=== PATIENT | male | born 1960 | race Hispanic/Latino ===

== ENCOUNTER 2017-04-18 20:07 | Inpatient (IN) | payer BC ==
[2017-04-18] MEDS ORDERED: Piperacillin/Tazobact 3.375 GM in Sodium Chloride 0.9% 100 ML IVPB STA (20:44)
[2017-04-18] MEDS ORDERED: Sodium Chloride 0.9% 1,000 ML IV STA ×2 (20:45→22:21)
--- NOTE | 2017-04-18 21:03 | ED PDOC ---
HPI: Skin/Bite Injury Time Seen by Provider: 04/18/17 20:24 Chief Complaint (Nursing): Fever Chief Complaint (Provider): Swollen penis History Per: Patient History/Exam Limitations: no limitations Onset/Duration Of Symptoms: Days (x 1) Current Symptoms Are (Timing): Still Present Additional Complaint(s): 56-year-old male presents to the emergency department complaining that since 8AM this morning hes had increasing swelling, redness, and achy pain to the shaft of his penis, worsening over time. Symptoms were initially localized to where he injected Trimix into his penis around 3AM last night to treat erectile dysfunction. He did this in order to have relations with his partner. Patient is also complaining of a subjective fever, chills, decreased appetite, body aches, malaise, and fatigue. He is able to urinate. No hematuria or frequency. PMD: Dr. Mallory, [facility] Pt is deaf with bilateral hearing aids. 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 Full HPI and PMH is obtainable this way. Past Medical History Reviewed: Historical Data, Nursing Documentation, Vital Signs Vital Signs: Last Vital Signs Temp 98.4 F 04/18/17 23:55 Pulse 91 H 04/18/17 23:55 Resp 20 04/18/17 23:55 BP 106/71 04/18/17 23:55 Pulse Ox 96 04/18/17 23:55 - Medical History PMH: HIV Other PMH: erectile dysfunction - Family History Family History: States: Unknown Family Hx - Social History Current smoker - smoking cessation education provided: No Alcohol: Social Drugs: Denies - Home Medications Home Medications: Ambulatory Orders Medication Instructions Recorded Emtricitab/Rilpiviri/Tenof Ala 1 tab PO DAILY 04/18/17 [Odefsey Tablet] - Allergies Allergies/Adverse Reactions: Allergies Allergy/AdvReac Type Severity Reaction Status Date / Time No Known Allergies Allergy Verified 03/26/15 16:07 Review of Systems ROS Statement: Except As Marked, All Systems Reviewed And Found Negative (as per HPI, otherwise negative) Constitutional: Positive for: Fever, Chills, Malaise (and fatigue), Other (body aches) Gastrointestinal: Positive for: Other (decreased appetite) Genitourinary Male: Positive for: Penile Pain (w/ redness and swelling). Negative for: Frequency, Hematuria Physical Exam - Reviewed Nursing Documentation Reviewed: Yes Vital Signs Reviewed: Yes - Physical Exam Appears: Positive for: Non-toxic, In Acute Distress Head Exam: Positive for: ATRAUMATIC, NORMOCEPHALIC Skin: Positive for: Warm, Dry Eye Exam: Positive for: EOMI, PERRL ENT: Positive for: Pharynx Is (clear with dry mucus membranes) Neck: Positive for: Painless ROM, Supple Cardiovascular/Chest: Positive for: Chest Non Tender, Tachycardia Respiratory: Negative for: Accessory Muscle Use, Respiratory Distress Gastrointestinal/Abdominal: Positive for: Soft. Negative for: Tenderness, Mass , Distended, Guarding Male Genital Exam: Positive for: other (diffusely edematous and erythematous penile shaft with firm enlarged area to LEFT lateral shaft (pt reports location of injection), erythema extends down to anterior scrotal area). Negative for: scrotum tenderness (R), scrotum tenderness (L) Back: Positive for: Normal Inspection Extremity: Positive for: Normal ROM. Negative for: Deformity Neurologic/Psych: Positive for: Alert, Mood/Affect (anxious affect) - Laboratory Results Result Diagrams: 04/18/17 21:00 04/18/17 21:00 - ECG O2 Sat by Pulse Oximetry: 100 (RA) Pulse Ox Interpretation: Normal Medical Decision Making Medical Decision Making: Time: 20:40 Initial Impression: Wound infection, penile shaft Differential also includes abscess, cellulitis, Fourniers, and sepsis. Initial Plan: * CMP * CBC w/ differential * PTT * Prothromin time * VBG * Blood type and screen * Blood culture * Sodium chloride IV 1000 ml at 1000 mls/hr * Toradol 15 mg IVP * Tylenol 975 mg PO * IV Zosyn and Vancomycin started * Will page PMD and urology Discussed case with Darren Barros NP for [facility]. Discussed case with Dr. Banks, patients private urologist in [place]. Patient will be hospitalized for IV antibiotics due to rapid progression of infection, as well as sensitive location of infection. Discussed with Dr. Scott, urology on-call, who agrees with plan and will see patient in the morning. Scribe Attestation: Documented by Jonna Becerra, acting as a scribe for Rossana Persaud MD Provider Scribe Attestation: All medical record entries made by the Scribe were at my direction and personally dictated by me. I have reviewed the chart and agree that the record accurately reflects my personal performance of the history, physical exam, medical decision making, and the department course for this patient. I have also personally directed, reviewed, and agree with the discharge instructions and disposition. Disposition - Clinical Impression Clinical Impression: Abscess of corpus cavernosum and penis, Cellulitis of corpus cavernosum and penis, Sepsis - Patient ED Disposition Is Patient to be Admitted: Yes Counseled Patient/Family Regarding: Studies Performed, Diagnosis - Disposition Disposition Time: 21:00 Condition: FAIR - Pt Status Changed To: Hospital Disposition Of: Observation - POA Present On Arrival: None
[2017-04-18] MEDS ORDERED: Piperacillin/Tazobact 3.375 gm Inj IVPB ONE (21:07)
[2017-04-18 21:09] LABS: VENOUS BLOOD GAS BASE EXCESS 5.2 mmol/L (0.0-2.0); VENOUS BLOOD GAS PCO2 32 mmHg (40-60); VENOUS BLOOD GAS PO2 46 mm/Hg (30-55); VENOUS BLOOD PH 7.54 (7.32-7.43)
[2017-04-18 21:24] LABS: PARTIAL THROMBOPLASTIN TIME 30.4 Seconds (25.6-37.1); PROTHROMBIN TIME 14.3 Seconds (9.8-13.1)
[2017-04-18 21:32] LABS: BASO % 0.1 % (0.0-2.0); EOS % 0.1 % (0.0-4.0); HEMOGLOBIN 13.2 g/dL (12.0-18.0); LYMPH # 1.5 K/uL (1.0-4.3); LYMPH % 4.9 % (20.0-40.0); MEAN CELL VOLUME 88.3 fl (80.0-94.0); MEAN CORPUSCULAR HEMOGLOBIN 29.5 pg (27.0-31.0); MEAN CORPUSCULAR HGB CONC 33.4 g/dL (33.0-37.0); MEAN PLATELET VOLUME 8.6 fl (7.2-11.7); MONO # 2.7 K/uL (0.0-0.8); MONO % 8.9 % (0.0-10.0); NEUT # 26.6 K/uL (1.8-7.0); PLATELET COUNT 271 K/uL (130-400); RBC 4.48 Mil/uL (4.40-5.90)
[2017-04-18] MEDS ORDERED: Vancomycin 1 g Inj ONE (21:37)
[2017-04-18 21:41] LABS: WHITE BLOOD COUNT 30.9 K/uL (4.8-10.8)
[2017-04-18] MEDS ORDERED: Piperacillin/Tazobact 3.375 GM in Sodium Chloride 0.9% 100 ML IVPB SCH (22:00)
[2017-04-18 22:17] LABS: BLOOD UREA NITROGEN 13 mg/dl (9-20)
[2017-04-18] MEDS: Sodium Chloride 0.9% 1,000 ML IV SCH (22:17)
[2017-04-18 22:18] LABS: ALB/GLOB RATIO 1.1 (1.0-2.1); ALBUMIN 4.1 g/dL (3.5-5.0); ALT/SGPT 59 U/L (21-72); AST/SGOT 58 U/L (17-59); CALCIUM 9.4 mg/dL (8.4-10.2); GFR AFRICAN-AMERICAN > 60; GFR NON-AFRICAN AMERICAN > 60
[2017-04-18 22:35] LABS: GIANT PLATELETS PRESENT; LYMPHOCYTE 7 % (20-50); MONOCYTE 11 % (0-10); NEUTROPHIL 83 % (42-75); PLATELET ESTIMATE NORMAL (NORMAL); TOTAL CELLS COUNTED 100; TOXIC GRANULATION PRESENT
[2017-04-19] MEDS: Piperacillin/Tazobact 3.375 GM in Sodium Chloride 0.9% 100 ML IVPB SCH ×4 (03:27→21:52)
[2017-04-19 06:42] LABS: BASO % 0.2 % (0.0-2.0); HEMOGLOBIN 12.6 g/dL (12.0-18.0); LYMPH # 1.7 K/uL (1.0-4.3); LYMPH % 7.1 % (20.0-40.0); MEAN CELL VOLUME 89.2 fl (80.0-94.0); MEAN CORPUSCULAR HEMOGLOBIN 30.1 pg (27.0-31.0); MEAN CORPUSCULAR HGB CONC 33.7 g/dL (33.0-37.0); MEAN PLATELET VOLUME 8.7 fl (7.2-11.7); MONO # 2.2 K/uL (0.0-0.8); MONO % 9.1 % (0.0-10.0); NEUT # 20.3 K/uL (1.8-7.0); NEUT % 83.6 % (50.0-75.0); NRBC % 0.1 % (0.0-0.0); RBC 4.17 Mil/uL (4.40-5.90); RED CELL DISTRIBUTION WIDTH 13.9 % (11.5-14.5); WHITE BLOOD COUNT 24.3 K/uL (4.8-10.8)
[2017-04-19 06:59] LABS: ALBUMIN 3.4 g/dL (3.5-5.0); ALT/SGPT 51 U/L (21-72); AST/SGOT 43 U/L (17-59); BLOOD UREA NITROGEN 12 mg/dl (9-20); CALCIUM 8.3 mg/dL (8.4-10.2); GFR AFRICAN-AMERICAN > 60; GFR NON-AFRICAN AMERICAN > 60
[2017-04-19] MEDS ORDERED: [UNRECOGNIZED DRUG - OTHER] PO SCH (09:00)
--- NOTE | 2017-04-19 10:12 | CARD ---
APPROVED REPORT EKG Measurement Heart [id number] <Conclusion> Sinus tachycardia Possible Left atrial enlargement Borderline ECG
[2017-04-19] MEDS: Sodium Chloride 0.9% 1,000 ML IV SCH ×3 (10:20→17:00)
--- NOTE | 2017-04-19 11:16 | RAD ---
HISTORY: sepsis COMPARISON: None available. TECHNIQUE: Chest, one view. FINDINGS: Examination limited by habitus and hypoinflation. Left lateral chest wall incompletely imaged. LUNGS: Prominent vascular markings may be exaggerated due to hypoinflation rather than pulmonary venous congestion. Correlate clinically. Please note that chest x-ray has limited sensitivity for the detection of pulmonary masses. PLEURA: No significant pleural effusion identified. No definite pneumothorax . CARDIOVASCULAR: Borderline cardiomegaly. OSSEOUS STRUCTURES: Degenerative changes. VISUALIZED UPPER ABDOMEN: Unremarkable. OTHER FINDINGS: None. IMPRESSION: Limited study. Prominent vascular markings may be exaggerated due to hypoinflation rather than pulmonary venous congestion. Correlate clinically. Borderline cardiomegaly.
--- NOTE | 2017-04-19 12:04 | CP.PCM.HP ---
History of Present Illness - History of Present Illness History of Present Illness: pt admitted for corpus cavernosum abscess/penile swelling after using trileptix for priapism. pt has had same in past but not this severe. h/o hiv pos satus lopez snot know [id number] load. denies f/c, n/v/d. per rn urinating well, pain controlled penis/testes red/swollen Present on Admission - Present on Admission Any Indicators Present on Admission: No Review of Systems - Genitourinary Genitourinary: As Per HPI Past Patient History - Infectious Disease Hx of Infectious Diseases: None - Past Medical History & Family History Past Medical History?: Yes - Past Social History Alcohol: Social Drugs: Denies - CARDIAC Hx Cardiac Disorders: No - PULMONARY Hx Respiratory Disorders: No - NEUROLOGICAL Hx Neurological Disorder: Yes Other/Comment: pt is deaf. pt able to read lips and sign - HEENT Hx HEENT Problems: Yes Hx Deafness: Yes (pt is deaf. pt able to read lips and sign) - RENAL Hx Chronic Kidney Disease: No - ENDOCRINE/METABOLIC Hx Endocrine Disorders: No - HEMATOLOGICAL/ONCOLOGICAL Hx Human Immunodeficiency Virus (HIV): Yes - INTEGUMENTARY Hx Dermatological Problems: No - MUSCULOSKELETAL/RHEUMATOLOGICAL Hx Musculoskeletal Disorders: No Hx Falls: No - GASTROINTESTINAL Hx Gastrointestinal Disorders: No - GENITOURINARY/GYNECOLOGICAL Hx Genitourinary Disorders: Yes Hx Prostate Problems: Yes Hx Reproductive Disorders: Yes (Erectile dysfunction) - PSYCHIATRIC Hx Psychophysiologic Disorder: No Hx Substance Use: No - SURGICAL HISTORY Hx Surgeries: Yes Hx Appendectomy: Yes Hx Herniorrhaphy: Yes - ANESTHESIA Hx Anesthesia: Yes Hx Anesthesia Reactions: No Meds Allergies/Adverse Reactions: Allergies Allergy/AdvReac Type Severity Reaction Status Date / Time No Known Allergies Allergy Verified 03/26/15 16:07 Physical Exam - Constitutional Appears: Well, Non-toxic, No Acute Distress - Head Exam Head Exam: ATRAUMATIC, NORMAL INSPECTION, NORMOCEPHALIC - Eye Exam Eye Exam: EOMI, Normal appearance, PERRL Pupil Exam: NORMAL ACCOMODATION, PERRL - ENT Exam ENT Exam: Mucous Membranes Moist, Normal Exam - Neck Exam Neck exam: Positive for: Normal Inspection - Respiratory Exam Respiratory Exam: Clear to Auscultation Bilateral, NORMAL BREATHING PATTERN - Cardiovascular Exam Cardiovascular Exam: REGULAR RHYTHM, +S1, +S2 - GI/Abdominal Exam GI & Abdominal Exam: Normal Bowel Sounds, Soft. absent: Tenderness - Exam Exam: Scrotal Swelling External exam: Erythema - Extremities Exam Extremities exam: Positive for: full ROM, normal capillary refill, normal inspection, pedal pulses present - Back Exam Back exam: NORMAL INSPECTION - Neurological Exam Neurological exam: Alert, CN II-XII Intact, Normal Gait, Oriented x3, Reflexes Normal - Psychiatric Exam Psychiatric exam: Normal Affect, Normal Mood - Skin Skin Exam: Dry, Intact, Normal Color, Warm Results - Vital Signs Recent Vital Signs: Last Vital Signs Temp 98.7 F 04/19/17 08:18 Pulse 89 04/19/17 08:18 Resp 20 04/19/17 08:18 BP 100/64 04/19/17 08:18 Pulse Ox 96 04/19/17 08:18 - Labs Result Diagrams: 04/19/17 06:30 04/19/17 06:30 Labs: Laboratory Results - last 24 hr 04/18/17 04/18/17 04/18/17 20:46 21:00 21:00 WBC 30.9 H D RBC 4.48 Hgb 13.2 Hct 39.5 MCV 88.3 D MCH 29.5 MCHC 33.4 RDW 14.0 Plt Count 271 MPV 8.6 Neut % (Auto) 86.0 H Lymph % (Auto) 4.9 L [place] % (Auto) 8.9 Eos % (Auto) 0.1 Baso % (Auto) 0.1 Neut # 26.6 H Lymph # 1.5 [place] # 2.7 H Eos # 0.0 Baso # 0.0 Neutrophils % (Manual) 83 H Lymphocytes % (Manual) 7 L Monocytes % (Manual) 11 H Toxic Granulation Present Platelet Estimate Normal Giant Platelets Present RBC Morphology Normal PT 14.3 H INR 1.0 APTT 30.4 pO2 VBG pH VBG pCO2 VBG HCO3 VBG Total CO2 VBG O2 Sat (Calc) VBG Base Excess VBG Potassium Glucose Lactate FiO2 Sodium 127 L Potassium 3.7 Chloride 92 L Carbon Dioxide 25 Anion Gap 14 BUN 13 Creatinine 1.0 Est GFR ( Amer) > 60 Est GFR (Non-Af Amer) > 60 Random Glucose 152 H Calcium 9.4 Total Bilirubin 2.0 H AST 58 ALT 59 Alkaline Phosphatase 70 Total Protein 7.8 Albumin 4.1 Globulin 3.7 Albumin/Globulin Ratio 1.1 Venous Blood Potassium Blood Type Blood Type Confirm Antibody Screen BBK History Checked 04/18/17 04/18/17 04/18/17 21:00 21:00 21:04 WBC RBC Hgb Hct MCV MCH MCHC RDW Plt Count MPV Neut % (Auto) Lymph % (Auto) [place] % (Auto) Eos % (Auto) Baso % (Auto) Neut # Lymph # [place] # Eos # Baso # Neutrophils % (Manual) Lymphocytes % (Manual) Monocytes % (Manual) Toxic Granulation Platelet Estimate Giant Platelets RBC Morphology PT INR APTT pO2 46 VBG pH 7.54 H VBG pCO2 32 L VBG HCO3 28.7 VBG Total CO2 28.4 H VBG O2 Sat (Calc) 90.3 H VBG Base Excess 5.2 H VBG Potassium 3.7 Glucose 157 H Lactate 0.9 FiO2 21.0 Sodium 127.0 L Potassium Chloride 94.0 L Carbon Dioxide Anion Gap BUN Creatinine Est GFR ( Amer) Est GFR (Non-Af Amer) Random Glucose Calcium Total Bilirubin AST ALT Alkaline Phosphatase Total Protein Albumin Globulin Albumin/Globulin Ratio Venous Blood Potassium 3.7 Blood Type O NEGATIVE Blood Type Confirm O NEGATIVE Antibody Screen Negative BBK History Checked No verified bt 04/19/17 04/19/17 06:30 06:30 WBC 24.3 H RBC 4.17 L Hgb 12.6 Hct 37.2 MCV 89.2 MCH 30.1 MCHC 33.7 RDW 13.9 Plt Count 250 MPV 8.7 Neut % (Auto) 83.6 H Lymph % (Auto) 7.1 L [place] % (Auto) 9.1 Eos % (Auto) 0.0 Baso % (Auto) 0.2 Neut # 20.3 H Lymph # 1.7 [place] # 2.2 H Eos # 0.0 Baso # 0.0 Neutrophils % (Manual) Lymphocytes % (Manual) Monocytes % (Manual) Toxic Granulation Platelet Estimate Giant Platelets RBC Morphology PT INR APTT pO2 VBG pH VBG pCO2 VBG HCO3 VBG Total CO2 VBG O2 Sat (Calc) VBG Base Excess VBG Potassium Glucose Lactate FiO2 Sodium 140 Potassium 3.8 Chloride 103 Carbon Dioxide 29 Anion Gap 12 BUN 12 Creatinine 1.0 Est GFR ( Amer) > 60 Est GFR (Non-Af Amer) > 60 Random Glucose 112 H Calcium 8.3 L Total Bilirubin 2.1 H AST 43 ALT 51 Alkaline Phosphatase 58 Total Protein 6.8 Albumin 3.4 L Globulin 3.5 Albumin/Globulin Ratio 1.0 Venous Blood Potassium Blood Type Blood Type Confirm Antibody Screen BBK History Checked Assessment & Plan (1) DVT prophylaxis Assessment and Plan: scd and ae hose hold anticoag until uro eval for pssible draining of penis ambulatiojn Status: Acute (2) Abscess of corpus cavernosum and penis Assessment and Plan: zosyn/vanco urology pain control Status: Acute (3) Cellulitis of corpus cavernosum and penis Assessment and Plan: zosyn/vanco urology pain control Status: Acute - Assessment and Plan (Free Text) Assessment: hiv-cont home meds, unkn cd4/viral load. no aids defining illness noted/reported Decision To Admit - Pt Status Changed To: Hospital Disposition Of: Inpatient - Admit Certification Admit to Inpatient:: After my assessment, the patient will require hospitalization for at least two midnights. This is because of the severity of symptoms shown, intensity of services needed, and/or the medical risk in this patient being treated as an outpatient. - . Bed Request Type: Med/Surg Admitting Physician: Nilda Galdamez
[2017-04-19] MEDS ORDERED: Chlorhexidine Gluconate 2OZ GEL TP ONE (13:30)
--- NOTE | 2017-04-19 22:26 | CON ---
DATE: 04/19/2017 COMPREHENSIVE UROLOGIC CONSULTATION REASON FOR CONSULTATION: Penile and scrotal cellulitis post Trimix injection into the penis. BRIEF HISTORY: Patient is a 56-year-old deaf, HIV+ sexually active white male who recently gave himself his second self intracorporeal penile injection for treatment of ED in the early a.m. today and noticed penile swelling at the injection site, which started getting progressively worse eventually requiring the patient to come to the emergency room. Patient had a prior episode of priapism in 2014 but this was not priapism this time. In the emergency room, it was determined that the patient most likely had some sort of penile and scrotal cellulitis with penile edema with an elevated white count and was admitted for IV antibiotics which currently includes Zosyn and vancomycin. The patient has done relatively well on these antibiotics with decreased swelling and pain which also included applying ice to the wound and now Bactroban ointment to the penile injection site. This was his second time using Trimix recently and patient states he will no longer use this technique again. Patient is followed by a urologist in [facility] and most of his medical doctors are also in [facility]. PAST MEDICAL HISTORY: His only other medical problem is HIV. MEDICATIONS: He is currently on Odefsey for treatment of HIV as his only medication. PAST SURGICAL HISTORY: Includes hernia repair and appendectomy. ALLERGIES: HE HAS NO KNOWN ALLERGIES TO ANY MEDICATIONS. SOCIAL HISTORY: He is a very rare social drinker and no history of any tobacco use. PHYSICAL EXAMINATION: GENERAL: Today, he is a well-developed, well-nourished white male, deaf, but is able to communicate by reading lips and he does speak. HEENT: Examination is grossly within normal limits. NECK: Supple. Thyroid not palpable. ABDOMEN: Soft, nondistended, nontender. No CVA tenderness. No suprapubic tenderness. GENITALIA: Patient is non-circumcised with a swollen foreskin and also some edema seen at the injection site on the patient's left mid penile shaft towards the base of the penis. The scrotum is also slightly erythematous. Normal penile meatus. RECTAL: Examination showed normal rectal tone without fluctuance or masses. Prostate was average sized, smooth, symmetrical, and nontender without nodules or indurations with a palpable median sulcus. Patient has full range of motion in both upper and lower extremities. LABORATORY DATA: His laboratory evaluation on 04/18/2017 showed a WBC count of 30.9, which decreased to 24.3 on IV Zosyn and vancomycin about 8 hours later. His current labs showed CBC with a WBC count of 24.3, hemoglobin of 12.6, hematocrit 37.2, and a platelet count of 250,000. On 04/18/2017, PT was 14.3, INR was 1.0, and PTT was 30.4. His chem profile today, 04/19/2017 shows a sodium of 140, potassium 3.8, chloride 103, CO2 of 29, BUN and creatinine of 12 and 1.0 respectively with a GFR of greater than 60. Random glucose is 112. Calcium is 8.3. Total bilirubin was 2.1, which is elevated. AST was 43, ALT 51, and alk phosphatase was 58. Chest x-ray showed prominent vascular markings, which may be exaggerated due to hypoinflation rather than pulmonary venous congestion. Borderline cardiomegaly. Patient is voiding gagan urine well without complaints, but urinalysis so far was not on the chart yet. DIAGNOSTIC IMPRESSION: Scrotal and penile cellulitis with mostly penile edema. PLAN: To continue the patient on his current IV antibiotic regimen and topical Bactroban ointment regimen and maintain the penis and scrotum raised above 2 rolled sheets. When the swelling goes down and his white count goes back to normal, patient can be discharged home on oral antibiotics, which may include something like Augmentin 875 mg b.i.d. for at least 10 days. Patient can be seen in office followup in 2 weeks. Ernesto Scott MD MTDD
[2017-04-20] MEDS: Piperacillin/Tazobact 3.375 GM in Sodium Chloride 0.9% 100 ML IVPB SCH ×4 (03:14→20:43)
[2017-04-20 06:22] LABS: BASO # 0.1 K/uL (0.0-0.2); BASO % 0.4 % (0.0-2.0); EOS # 0.1 K/uL (0.0-0.7); EOS % 0.5 % (0.0-4.0); HEMOGLOBIN 12.1 g/dL (12.0-18.0); LYMPH # 2.2 K/uL (1.0-4.3); LYMPH % 13.6 % (20.0-40.0); MEAN CELL VOLUME 89.9 fl (80.0-94.0); MEAN CORPUSCULAR HEMOGLOBIN 30.2 pg (27.0-31.0); MEAN CORPUSCULAR HGB CONC 33.5 g/dL (33.0-37.0); MEAN PLATELET VOLUME 8.4 fl (7.2-11.7); MONO # 1.3 K/uL (0.0-0.8); NEUT # 12.4 K/uL (1.8-7.0); NEUT % 77.5 % (50.0-75.0); NRBC % 0.1 % (0.0-0.0); RBC 4.02 Mil/uL (4.40-5.90); RED CELL DISTRIBUTION WIDTH 14.4 % (11.5-14.5); WHITE BLOOD COUNT 15.9 K/uL (4.8-10.8)
[2017-04-20 06:44] LABS: ALBUMIN 3.5 g/dL (3.5-5.0); ALT/SGPT 50 U/L (21-72); AST/SGOT 29 U/L (17-59); BLOOD UREA NITROGEN 12 mg/dl (9-20); CALCIUM 8.6 mg/dL (8.4-10.2); GFR AFRICAN-AMERICAN > 60; GFR NON-AFRICAN AMERICAN > 60
--- NOTE | 2017-04-20 07:26 | CP.PCM.PN ---
Subjective - Date & Time of Evaluation Date of Evaluation: 04/20/17 Time of Evaluation: 07:26 - Subjective Subjective: pt comfortable in bed. no f/c, n/v/d. still w/ penile swelling/erythema. pt able to urinate, pain controlled Objective - Vital Signs/Intake and Output Vital Signs (last 24 hours): Temp Pulse Resp BP Pulse Ox 98.2 F 81 18 101/66 98 04/20/17 00:30 04/20/17 00:30 04/20/17 00:30 04/20/17 00:30 04/20/17 00:30 - Medications Medications: Current Medications Acetaminophen (Tylenol 325mg Tab) 650 mg PO Q4 PRN PRN Reason: Fever >100.4 F Acetaminophen (Tylenol 325mg Tab) 650 mg PO Q4 PRN PRN Reason: Headache Last Admin: 04/19/17 15:31 Dose: 650 mg Home Med (Emtricitab/Rilpiviri/Tenof Ala [Odefsey Tablet]) 1 tab PO DAILY [facility] Vancomycin HCl 1 gm/ Sodium (Chloride) 250 mls @ 166.667 mls/hr IVPB Q12@1000, 2200 ISA PRN Reason: Protocol Last Admin: 04/19/17 21:54 Dose: 166.667 mls/hr Piperacillin Sod/Tazobactam (Sod 3.375 gm/ Sodium Chloride) 100 mls @ 100 mls/ hr IVPB 0300,0900,1500,2100 ISA PRN Reason: Protocol Last Admin: 04/20/17 03:14 Dose: 100 mls/hr Ketorolac Tromethamine (Toradol) 30 mg IVP Q6 PRN PRN Reason: pain 6-10 Lactobacillus Acidophilus (Bacid Acidophilus) 1 cap PO BID [facility] Mupirocin (Bactroban Ointment) 1 applic TOP BID [facility] Last Admin: 04/19/17 16:59 Dose: 1 applic - Labs Labs: 04/20/17 06:05 04/20/17 06:05 PT 14.3 Seconds (9.8-13.1) H 04/18/17 20:46 INR 1.0 (0.9-1.2) 04/18/17 20:46 APTT 30.4 Seconds (25.6-37.1) 12/31/17 20:46 - Constitutional Appears: Well, Non-toxic, No Acute Distress - Head Exam Head Exam: ATRAUMATIC, NORMAL INSPECTION, NORMOCEPHALIC - Eye Exam Eye Exam: EOMI, Normal appearance, PERRL Pupil Exam: NORMAL ACCOMODATION, PERRL - ENT Exam ENT Exam: Mucous Membranes Moist, Normal Exam - Neck Exam Neck Exam: Full ROM, Normal Inspection. absent: Lymphadenopathy - Respiratory Exam Respiratory Exam: Clear to Ausculation Bilateral, NORMAL BREATHING PATTERN - Cardiovascular Exam Cardiovascular Exam: REGULAR RHYTHM, RRR, +S1, +S2. absent: Murmur - GI/Abdominal Exam GI & Abdominal Exam: Soft, Normal Bowel Sounds. absent: Tenderness - Extremities Exam Extremities Exam: Full ROM, Normal Capillary Refill, Normal Inspection. absent : Joint Swelling, Pedal Edema - Back Exam Back Exam: NORMAL INSPECTION - Neurological Exam Neurological Exam: Alert, Awake, CN II-XII Intact, Normal Gait, Oriented x3 - Psychiatric Exam Psychiatric exam: Normal Affect, Normal Mood - Skin Skin Exam: Dry, Intact, Normal Color, Warm Assessment and Plan (1) DVT prophylaxis Assessment & Plan: scd abd ae hose ambulation Status: Acute (2) Abscess of corpus cavernosum and penis Assessment & Plan: cont anbx uro consult appriciated pain management elevate penis/scrotum wbc count trending down Status: Acute (3) Cellulitis of corpus cavernosum and penis Assessment & Plan: cont anbx uro consult appriciated pain management elevate penis/scrotum Status: Acute
[2017-04-20] MEDS: Lactobacillus Acidophilus 500 MU Cap PO SCH ×2 (08:53→17:00)
[2017-04-21] MEDS: Piperacillin/Tazobact 3.375 GM in Sodium Chloride 0.9% 100 ML IVPB SCH ×2 (02:22→09:11)
[2017-04-21 07:06] LABS: BASO # 0.1 K/uL (0.0-0.2); BASO % 0.7 % (0.0-2.0); EOS # 0.2 K/uL (0.0-0.7); EOS % 1.9 % (0.0-4.0); LYMPH # 2.1 K/uL (1.0-4.3); LYMPH % 21.9 % (20.0-40.0); MEAN CELL VOLUME 90.1 fl (80.0-94.0); MEAN CORPUSCULAR HEMOGLOBIN 30.6 pg (27.0-31.0); MEAN CORPUSCULAR HGB CONC 33.9 g/dL (33.0-37.0); MEAN PLATELET VOLUME 8.7 fl (7.2-11.7); MONO # 0.8 K/uL (0.0-0.8); MONO % 8.3 % (0.0-10.0); NEUT # 6.5 K/uL (1.8-7.0); NEUT % 67.2 % (50.0-75.0); NRBC % 0.1 % (0.0-0.0); RBC 4.25 Mil/uL (4.40-5.90); RED CELL DISTRIBUTION WIDTH 13.9 % (11.5-14.5); WHITE BLOOD COUNT 9.7 K/uL (4.8-10.8)
[2017-04-21 07:18] LABS: ALBUMIN 3.8 g/dL (3.5-5.0); ALT/SGPT 48 U/L (21-72); AST/SGOT 29 U/L (17-59); BLOOD UREA NITROGEN 9 mg/dl (9-20); GFR AFRICAN-AMERICAN > 60; GFR NON-AFRICAN AMERICAN > 60
--- NOTE | 2017-04-21 08:26 | CP.PCM.DIS ---
Provider - Provider Date of Admission: 04/19/17 12:00 Attending physician: Nilda Galdamez MD Time Spent in preparation of Discharge (in minutes): 15 Diagnosis - Discharge Diagnosis (1) DVT prophylaxis Status: Acute (2) Abscess of corpus cavernosum and penis Status: Acute (3) Cellulitis of corpus cavernosum and penis Status: Acute Hospital Course - Lab Results Lab Results: Micro Results 04/18/17 23:47 Blood-Venous Blood Culture - Preliminary NO GROWTH AFTER 48 HOURS 04/18/17 21:00 Blood-Venous Blood Culture - Preliminary NO GROWTH AFTER 48 HOURS Most Recent Lab Values WBC 9.7 K/uL (4.8-10.8) 04/21/17 06:35 RBC 4.25 Mil/uL (4.40-5.90) L 04/21/17 06:35 Hgb 13.0 g/dL (12.0-18.0) 04/21/17 06:35 Hct 38.3 % (35.0-51.0) 04/21/17 06:35 MCV 90.1 fl (80.0-94.0) 04/21/17 06:35 MCH 30.6 pg (27.0-31.0) 04/21/17 06:35 MCHC 33.9 g/dL (33.0-37.0) 04/21/17 06:35 RDW 13.9 % (11.5-14.5) 04/21/17 06:35 Plt Count 280 K/uL (130-400) 04/21/17 06:35 MPV 8.7 fl (7.2-11.7) 04/21/17 06:35 Neut % (Auto) 67.2 % (50.0-75.0) 04/21/17 06:35 Lymph % (Auto) 21.9 % (20.0-40.0) 04/21/17 06:35 [place] % (Auto) 8.3 % (0.0-10.0) 04/21/17 06:35 Eos % (Auto) 1.9 % (0.0-4.0) 04/21/17 06:35 Baso % (Auto) 0.7 % (0.0-2.0) 04/21/17 06:35 Neut # 6.5 K/uL (1.8-7.0) 04/21/17 06:35 Lymph # 2.1 K/uL (1.0-4.3) 04/21/17 06:35 [place] # 0.8 K/uL (0.0-0.8) 04/21/17 06:35 Eos # 0.2 K/uL (0.0-0.7) 04/21/17 06:35 Baso # 0.1 K/uL (0.0-0.2) 04/21/17 06:35 Neutrophils % (Manual) 83 % (42-75) H 04/18/17 21:00 Lymphocytes % (Manual) 7 % (20-50) L 04/18/17 21:00 Monocytes % (Manual) 11 % (0-10) H 04/18/17 21:00 Toxic Granulation Present 04/18/17 21:00 Platelet Estimate Normal (NORMAL) 04/18/17 21:00 Giant Platelets Present 04/18/17 21:00 RBC Morphology Normal (NORMAL) 04/18/17 21:00 PT 14.3 Seconds (9.8-13.1) H 04/18/17 20:46 INR 1.0 (0.9-1.2) 04/18/17 20:46 APTT 30.4 Seconds (25.6-37.1) 04/18/17 20:46 pO2 46 mm/Hg (30-55) 04/18/17 21:04 VBG pH 7.54 (7.32-7.43) H 04/18/17 21:04 VBG pCO2 32 mmHg (40-60) L 04/18/17 21:04 VBG HCO3 28.7 mmol/L 04/18/17 21:04 VBG Total CO2 28.4 mmol/L (22-28) H 04/18/17 21:04 VBG O2 Sat (Calc) 90.3 % (40-65) H 04/18/17 21:04 VBG Base Excess 5.2 mmol/L (0.0-2.0) H 04/18/17 21:04 VBG Potassium 3.7 mmol/L (3.6-5.2) 04/18/17 21:04 Sodium 127.0 mmol/L (132-148) L 04/18/17 21:04 Chloride 94.0 mmol/L (98-107) L 04/18/17 21:04 Glucose 157 mg/dL (75-110) H 04/18/17 21:04 Lactate 0.9 mmol/L (0.7-2.1) 04/18/17 21:04 FiO2 21.0 % 04/18/17 21:04 Sodium 142 mmol/l (132-148) 04/21/17 06:35 Potassium 3.8 MMOL/L (3.6-5.0) 04/21/17 06:35 Chloride 105 mmol/L (98-107) 04/21/17 06:35 Carbon Dioxide 27 mmol/L (22-30) 04/21/17 06:35 Anion Gap 14 (10-20) 04/21/17 06:35 BUN 9 mg/dl (9-20) 04/21/17 06:35 Creatinine 1.0 mg/dl (0.8-1.5) 04/21/17 06:35 Est GFR ( Amer) > 60 04/21/17 06:35 Est GFR (Non-Af Amer) > 60 04/21/17 06:35 Random Glucose 94 mg/dL (75-110) 04/21/17 06:35 Calcium 9.0 mg/dL (8.4-10.2) 04/21/17 06:35 Total Bilirubin 0.5 mg/dl (0.2-1.3) 04/21/17 06:35 AST 29 U/L (17-59) 04/21/17 06:35 ALT 48 U/L (21-72) 04/21/17 06:35 Alkaline Phosphatase 64 U/L (38-126) 04/21/17 06:35 Total Protein 7.4 G/DL (6.3-8.2) 04/21/17 06:35 Albumin 3.8 g/dL (3.5-5.0) 04/21/17 06:35 Globulin 3.6 gm/dL (2.2-3.9) 04/21/17 06:35 Albumin/Globulin Ratio 1.0 (1.0-2.1) 04/21/17 06:35 Venous Blood Potassium 3.7 mmol/L (3.6-5.2) 04/18/17 21:04 Blood Type O NEGATIVE 04/18/17 21:00 Blood Type Confirm O NEGATIVE 04/18/17 21:00 Antibody Screen Negative 04/18/17 21:00 BBK History Checked No verified bt 04/18/17 21:00 Discharge Exam - Head Exam Head Exam: ATRAUMATIC, NORMAL INSPECTION, NORMOCEPHALIC - Eye Exam Eye Exam: EOMI, Normal appearance, PERRL Pupil Exam: NORMAL ACCOMODATION, PERRL - Respiratory Exam Respiratory Exam: Clear to PA & Lateral, NORMAL BREATHING PATTERN, UNREMARKABLE - Cardiovascular Exam Cardiovascular Exam: REGULAR RHYTHM, RRR, +S1, +S2 - GI/Abdominal Exam GI & Abdominal Exam: Normal Bowel Sounds, Soft, Unremarkable - Extremities Exam Extremities exam: full ROM, normal capillary refill, normal inspection, pedal pulses present - Neurological Exam Neurological exam: Alert, CN II-XII Intact, Normal Gait, Oriented x3, Reflexes Normal - Psychiatric Exam Psychiatric exam: Normal Affect, Normal Mood - Skin Skin Exam: Dry, Intact, Normal Color, Warm Discharge Plan - Discharge Medications Prescriptions: Amoxicillin/Clavulanate [Augmentin 875 MG-125 MG] 1 tab PO BID #20 tab - Follow Up Plan Condition: FAIR Disposition: HOME/ ROUTINE Instructions: Cellulitis (DC), Abscess (GEN) Additional Instructions: final dx-corpus cavernosum abscess/cellulitis cleared by uro, f/u primary uro in [facility]. keep penis/scrotum elevated until swelling gone. meds e-rx no f/c, n/v/d. passing urine. no pain Referrals: Ernesto Scott MD [Staff Provider] - Nilda Galdamez MD [Staff Provider] -
[2017-04-21 08:27] VITALS: BP 122/78; PULSE 75; RESP 20; TEMP 98.1; O2SAT 100
[2017-04-21] MEDS: Lactobacillus Acidophilus 500 MU Cap PO SCH (09:13)
--- NOTE | 2017-04-23 08:16 | PQF SEPSIS ---
Sepsis is documented in the ED Physician Documentation Report. After study was diagnosis of sepsis ruled in or out? This form is a permanent part of the medical record Clarification of your documentation is requested to better reflect the severity of illness and intensity of treatment of your patient. Indicators present [] Temp < 96.8 or > 100.4 [x] WBC count > 12,000/mm3 or <000/mm3 or 10% immature neutrophils [] Heart Rate > 90 [] Respiratory Rate > 20 [x] Fever or hypothermia [x] Chills [] Positive blood cultures [] Hypotension [] Metabolic acidosis (Elevated lactate level, anion gap or reduced blood pH) [] Acute confusion /Altered Mental Status [] Shock [] Other: [] Location in the medical record that reflects the above clinical findings: [] Treatment Provided: [] PHYSICIAN'S RESPONSE Based on your medical judgment of the clinical indicators outlined above, are you treating this patient for a known or suspected: [] Sepsis / Septicemia Please specify organism if known [] [x] SIRS (Systemic Inflammatory Response Syndrome) [] Severe Sepsis (Sepsis with Associated Organ Dysfunction) [] Fever of Unknown Origin [] Other, please indicate: [] [] If Unable to Determine, please check the box, sign and date. Present On Admission (POA) Indicator: [x] Present at the time of admission [] Not present at the time of admission [] Clinically Undetermined In responding to this query, please exercise your independent professional judgment. The fact that a question is asked does not imply that any particular answer is desired or expected. Thank you for your clarification on this documentation. If you have any questions please call:[ ] * Thank you, [ ]Danette Rodriguez baker paint CECY
== END 2017-04-21 14:37 | disposition home or self-care (01) | DRG 728 ==
LOC: H.ER 20:07 → H.ERHOLD 21:25 → H.MEDSURG1 23:16 → OBSVTOIN 04-19 12:00
PROVIDERS: ADMIT Family Medicine; ATTEND Family Medicine
DX: N48.21 Abscess of corpus cavernosum and penis (principal); H91.93 Unspecified hearing loss, bilateral; N48.22 Cellulitis of corpus cavernosum and penis; N52.9 Male erectile dysfunction, unspecified; Z21 Asymptomatic human immunodeficiency virus [HIV] infection status

== ENCOUNTER 2017-06-21 10:29 | Observation (INO) | payer BC ==
[2017-06-21] MEDS ORDERED: Oxycodone/Acetaminophen 5/325 mg Tab PO STA (12:10)
[2017-06-21] MEDS ORDERED: Piperacillin/Tazobact 3.375 GM in Sodium Chloride 0.9% 100 ML IVPB STA (12:10)
--- NOTE | 2017-06-21 12:46 | ED PDOC ---
HPI: General Adult Time Seen by Provider: 06/21/17 11:06 Chief Complaint (Nursing): Upper Extremity Problem/Injury History Per: Patient History/Exam Limitations: language barrier Additional Complaint(s): Pt. states on Wednesday a door accidentally closed on his R hand/forearm. States he felt as if he got "poked" but noticed no bleeding at the site of impact. Since then he's developed redness and swelling. Of note, pt. is HIV positive and is compliant with his HIV meds. Last CD4 was done in April and as per patient it was normal. Denies numbness, tingling, fever, discharge, other injury. Patient is deaf and was offered a civil design technician but refused. Past Medical History Reviewed: Historical Data, Nursing Documentation, Vital Signs Vital Signs: Last Vital Signs Temp 98.8 F 06/21/17 16:19 Pulse 91 H 06/21/17 16:19 Resp 18 06/21/17 19:42 BP 115/77 06/21/17 16:19 Pulse Ox 96 06/21/17 16:19 - Medical History PMH: HIV Denies: Chronic Kidney Disease - Surgical History Surgical History: Appendectomy - Family History Family History: States: No Known Family Hx - Immunization History Hx Tetanus Toxoid Vaccination: Yes (2010) - Home Medications Home Medications: Ambulatory Orders Medication Instructions Recorded Emtricitab/Rilpiviri/Tenof [place] 1 tab PO DAILY 04/18/17 [Odefsey Tablet] - Allergies Allergies/Adverse Reactions: Allergies Allergy/AdvReac Type Severity Reaction Status Date / Time No Known Allergies Allergy Verified 03/26/15 16:07 Review of Systems ROS Statement: Except As Marked, All Systems Reviewed And Found Negative Musculoskeletal: Positive for: Hand Pain Physical Exam - Physical Exam Appears: Positive for: Well, Non-toxic, No Acute Distress Head Exam: Positive for: ATRAUMATIC Skin: Positive for: Normal Color, Warm. Negative for: Rash Eye Exam: Positive for: Normal appearance Pulses-Radial (L): 2+ Pulses-Radial (R): 2+ Extremity: Positive for: Normal ROM (FROM actively of R wrist and R hand ), Other (RUE: Dorsal right hand and right forearm with moderate swelling, warmth, erythema without break in skin integrity) Neurologic/Psych: Positive for: Alert, Oriented - Laboratory Results Result Diagrams: 06/21/17 12:57 06/21/17 14:00 - ECG O2 Sat by Pulse Oximetry: 100 - Progress ED Course And Treament: Labs ordered. Zosyn IV, vancomycin IV ordered. Blood culture x 2 ordered. Tetanus prophylaxis administered. Due to patient's PMHx there is increase likelihood of worsening infection, pt. will be admitted. Case d/w Fiorella, KAYLYN and arrangements made for admission. Disposition - Clinical Impression Clinical Impression: Cellulitis - Patient ED Disposition Is Patient to be Admitted: Yes - Disposition Disposition: Routine/Home Disposition Time: 13:53 Condition: STABLE
[2017-06-21] MEDS ORDERED: Oxycodone/Acetaminophen 5/325 mg Tab ONE (12:52)
[2017-06-21] MEDS ORDERED: Piperacillin/Tazobact 3.375 gm Inj IVPB ONE (12:52)
[2017-06-21 12:58] LABS: VENOUS BLOOD GAS BASE EXCESS 2.6 mmol/L (0.0-2.0); VENOUS BLOOD GAS PCO2 41 mmHg (40-60); VENOUS BLOOD GAS PO2 42 mm/Hg (30-55); VENOUS BLOOD PH 7.43 (7.32-7.43)
[2017-06-21 13:02] LABS: BASO # 0.1 K/uL (0.0-0.2); BASO % 0.5 % (0.0-2.0); EOS % 0.1 % (0.0-4.0); HEMOGLOBIN 14.9 g/dL (12.0-18.0); LYMPH # 2.1 K/uL (1.0-4.3); LYMPH % 15.8 % (20.0-40.0); MEAN CELL VOLUME 89.2 fl (80.0-94.0); MEAN CORPUSCULAR HEMOGLOBIN 30.3 pg (27.0-31.0); MEAN PLATELET VOLUME 8.6 fl (7.2-11.7); MONO # 1.3 K/uL (0.0-0.8); NEUT # 9.8 K/uL (1.8-7.0); NEUT % 73.6 % (50.0-75.0); NRBC % 0.4 % (0.0-0.0); RBC 4.9 Mil/uL (4.40-5.90); RED CELL DISTRIBUTION WIDTH 14.4 % (11.5-14.5); WHITE BLOOD COUNT 13.3 K/uL (4.8-10.8)
[2017-06-21] MEDS ORDERED: Tdap Vaccine 0.5 ml Vial (10-64 yrs) IM ONE ×2 (13:59→14:21)
[2017-06-21] MEDS ORDERED: Oxycodone/Acetaminophen 5/325 mg Tab PO PRN (14:25)
[2017-06-21 14:31] LABS: CALCIUM 9.5 mg/dL (8.4-10.2); GFR AFRICAN-AMERICAN > 60; GFR NON-AFRICAN AMERICAN > 60
--- NOTE | 2017-06-21 14:36 | RAD ---
PROCEDURE: Right Hand Radiographs. HISTORY: trauma/cellulitis COMPARISON: None. FINDINGS: BONES: Normal. No fracture. JOINTS: Normal. No osteoarthritic changes. SOFT TISSUES: Normal. OTHER FINDINGS: None. IMPRESSION: Normal right hand radiographs.
--- NOTE | 2017-06-21 14:38 | RAD ---
PROCEDURE: Radiographs of the Right Forearm HISTORY: trauma/cellulitis COMPARISON: None available. TECHNIQUE: Frontal and lateral views obtained. FINDINGS: BONES: No fracture or destructive lesion. JOINT SPACES: Unremarkable. OTHER FINDINGS: None. IMPRESSION: Unremarkable radiographs of the right forearm.
[2017-06-21 15:28] LABS: BLOOD UREA NITROGEN 23 mg/dl (9-20)
[2017-06-21 15:30] LABS: ALB/GLOB RATIO 1.1 (1.0-2.1); ALBUMIN 4.2 g/dL (3.5-5.0); ALT/SGPT 51 U/L (21-72); AST/SGOT 49 U/L (17-59)
[2017-06-21] MEDS: Piperacillin/Tazobact 3.375 GM in Sodium Chloride 0.9% 100 ML IVPB SCH ×2 (16:58→22:54)
[2017-06-22] MEDS: Piperacillin/Tazobact 3.375 GM in Sodium Chloride 0.9% 100 ML IVPB SCH ×2 (03:59→09:02)
[2017-06-22 07:03] LABS: ALB/GLOB RATIO 1.1 (1.0-2.1); ALBUMIN 3.8 g/dL (3.5-5.0); ALT/SGPT 41 U/L (21-72); AST/SGOT 36 U/L (17-59); BLOOD UREA NITROGEN 17 mg/dl (9-20); CALCIUM 8.9 mg/dL (8.4-10.2); GFR AFRICAN-AMERICAN > 60; GFR NON-AFRICAN AMERICAN > 60
--- NOTE | 2017-06-22 07:28 | CP.PCM.HP ---
History of Present Illness - History of Present Illness History of Present Illness: pt admitted for rfa cellulitis. no tx prior to hospital. no f/c, n/v/d. bw noted w/ now normal wbc. full rom of elbow/wrist. stiffness in fingers. mild erythem noted. distal swelling is noted but less than yesterday as per rn Present on Admission - Present on Admission Any Indicators Present on Admission: No Review of Systems - Integumentary Integumentary: As Per HPI, Erythema, Swelling Past Patient History - Infectious Disease Hx of Infectious Diseases: None - Past Medical History & Family History Past Medical History?: Yes - Past Social History Smoking Status: Never Smoked - CARDIAC Hx Cardiac Disorders: No - PULMONARY Hx Respiratory Disorders: No - NEUROLOGICAL Hx Neurological Disorder: Yes Other/Comment: pt is deaf. pt able to read lips and sign - HEENT Hx HEENT Problems: Yes Hx Deafness: Yes (pt is deaf. pt able to read lips and sign) - RENAL Hx Chronic Kidney Disease: No - ENDOCRINE/METABOLIC Hx Endocrine Disorders: No - HEMATOLOGICAL/ONCOLOGICAL Hx Human Immunodeficiency Virus (HIV): Yes - INTEGUMENTARY Hx Dermatological Problems: No - MUSCULOSKELETAL/RHEUMATOLOGICAL Hx Musculoskeletal Disorders: No Hx Falls: No - GASTROINTESTINAL Hx Gastrointestinal Disorders: No - GENITOURINARY/GYNECOLOGICAL Hx Genitourinary Disorders: Yes Hx Prostate Problems: Yes Hx Reproductive Disorders: Yes (Erectile dysfunction) - PSYCHIATRIC Hx Psychophysiologic Disorder: No Hx Substance Use: No - SURGICAL HISTORY Hx Appendectomy: Yes - ANESTHESIA Hx Anesthesia: Yes Hx Anesthesia Reactions: No Meds Allergies/Adverse Reactions: Allergies Allergy/AdvReac Type Severity Reaction Status Date / Time No Known Allergies Allergy Verified 03/26/15 16:07 Physical Exam - Constitutional Appears: Well, Non-toxic, No Acute Distress - Head Exam Head Exam: ATRAUMATIC, NORMAL INSPECTION, NORMOCEPHALIC - Eye Exam Eye Exam: EOMI, Normal appearance, PERRL Pupil Exam: NORMAL ACCOMODATION, PERRL - ENT Exam ENT Exam: Mucous Membranes Moist, Normal Exam - Neck Exam Neck exam: Positive for: Normal Inspection - Respiratory Exam Respiratory Exam: Clear to Auscultation Bilateral, NORMAL BREATHING PATTERN - Cardiovascular Exam Cardiovascular Exam: REGULAR RHYTHM, RRR, +S1, +S2 - GI/Abdominal Exam GI & Abdominal Exam: Normal Bowel Sounds, Soft. absent: Tenderness - Extremities Exam Extremities exam: Positive for: full ROM, normal capillary refill, normal inspection, pedal pulses present - Back Exam Back exam: FULL ROM, NORMAL INSPECTION - Neurological Exam Neurological exam: Alert, CN II-XII Intact, Normal Gait, Oriented x3, Reflexes Normal - Psychiatric Exam Psychiatric exam: Normal Affect, Normal Mood - Skin Skin Exam: Dry, Erythema, Intact, Normal Color, Warm Additional comments: rfa/hand swelling/mild erythema Results - Vital Signs Recent Vital Signs: Last Vital Signs Temp 98.2 F 06/22/17 00:00 Pulse 89 06/22/17 00:00 Resp 20 06/22/17 00:00 BP 113/69 06/22/17 00:00 Pulse Ox 97 06/22/17 00:00 - Labs Result Diagrams: 06/22/17 06:20 06/22/17 06:20 Labs: Laboratory Results - last 24 hr 06/21/17 06/21/17 06/21/17 12:18 12:57 14:00 WBC 13.3 H RBC 4.90 Hgb 14.9 Hct 43.7 MCV 89.2 MCH 30.3 MCHC 34.0 RDW 14.4 Plt Count 279 MPV 8.6 Neut % (Auto) 73.6 Lymph % (Auto) 15.8 L [place] % (Auto) 10.0 Eos % (Auto) 0.1 Baso % (Auto) 0.5 Neut # (Auto) 9.8 H Lymph # (Auto) 2.1 [place] # (Auto) 1.3 H Eos # (Auto) 0.0 Baso # (Auto) 0.1 pO2 42 VBG pH 7.43 VBG pCO2 41 VBG HCO3 26.4 VBG Total CO2 28.5 H VBG O2 Sat (Calc) 83.5 H VBG Base Excess 2.6 H VBG Potassium 3.6 A-a O2 Difference 56.0 Sodium 133.0 137 Chloride 101.0 97 L Glucose 108 Lactate 1.7 FiO2 21.0 Blood Gas Comments Vbg Crit Value Called To Rahul larson Crit Value Called By 15 Crit Value Read Back Y Blood Gas Notified Time 1257 Potassium 3.9 Carbon Dioxide 26 Anion Gap 18 BUN 23 H Creatinine 0.9 Est GFR ( Amer) > 60 Est GFR (Non-Af Amer) > 60 Random Glucose 106 Calcium 9.5 Total Bilirubin 1.5 H AST 49 ALT 51 Alkaline Phosphatase 67 Total Protein 8.0 Albumin 4.2 Globulin 3.8 Albumin/Globulin Ratio 1.1 Venous Blood Potassium 3.6 06/22/17 06:20 WBC RBC Hgb Hct MCV MCH MCHC RDW Plt Count MPV Neut % (Auto) Lymph % (Auto) [place] % (Auto) Eos % (Auto) Baso % (Auto) Neut # (Auto) Lymph # (Auto) [place] # (Auto) Eos # (Auto) Baso # (Auto) pO2 VBG pH VBG pCO2 VBG HCO3 VBG Total CO2 VBG O2 Sat (Calc) VBG Base Excess VBG Potassium A-a O2 Difference Sodium 141 Chloride 99 Glucose Lactate FiO2 Blood Gas Comments Crit Value Called To Crit Value Called By Crit Value Read Back Blood Gas Notified Time Potassium Carbon Dioxide 27 Anion Gap BUN 17 Creatinine 1.0 Est GFR ( Amer) > 60 Est GFR (Non-Af Amer) > 60 Random Glucose 96 Calcium 8.9 Total Bilirubin 1.7 H AST 36 ALT 41 Alkaline Phosphatase 58 Total Protein 7.3 Albumin 3.8 Globulin 3.5 Albumin/Globulin Ratio 1.1 Venous Blood Potassium Assessment & Plan (1) Right forearm cellulitis Assessment and Plan: vanco/zosyn keep elevated less erythema/induration wbc improving. Status: Acute (2) HIV (human immunodeficiency virus infection) Assessment and Plan: cont home meds will d/c w/ pts primary and review office chart for cd4/viral load Status: Acute (3) DVT prophylaxis Assessment and Plan: scd nad aehose, ambulation Status: Acute Decision To Admit - Pt Status Changed To: Hospital Disposition Of: Observation - . Bed Request Type: Med/Surg Admitting Physician: Nilda Galdamez
[2017-06-22 07:42] LABS: BASO # 0.1 K/uL (0.0-0.2); BASO % 0.7 % (0.0-2.0); EOS # 0.1 K/uL (0.0-0.7); EOS % 0.6 % (0.0-4.0); HEMOGLOBIN 13.6 g/dL (12.0-18.0); LYMPH # 2.7 K/uL (1.0-4.3); MEAN CELL VOLUME 91.5 fl (80.0-94.0); MEAN CORPUSCULAR HEMOGLOBIN 30.6 pg (27.0-31.0); MEAN CORPUSCULAR HGB CONC 33.5 g/dL (33.0-37.0); MEAN PLATELET VOLUME 9.3 fl (7.2-11.7); MONO # 1.5 K/uL (0.0-0.8); MONO % 13.6 % (0.0-10.0); NEUT # 6.4 K/uL (1.8-7.0); NEUT % 60.1 % (50.0-75.0); RBC 4.44 Mil/uL (4.40-5.90); RED CELL DISTRIBUTION WIDTH 14.3 % (11.5-14.5); WHITE BLOOD COUNT 10.7 K/uL (4.8-10.8)
--- NOTE | 2017-06-22 08:28 | CARD ---
APPROVED REPORT EKG Measurement Heart [id number] <Conclusion> Normal sinus rhythm [place] ECG
[2017-06-22] MEDS ORDERED: [UNRECOGNIZED DRUG - OTHER] PO SCH (09:00)
[2017-06-22 15:45] VITALS: BP 101/60; PULSE 82; RESP 20; TEMP 99.3; O2SAT 97
--- NOTE | 2017-06-22 18:13 | CP.PCM.DIS ---
Provider - Provider Date of Admission: 06/21/17 13:55 Attending physician: Nilda Galdamez MD Time Spent in preparation of Discharge (in minutes): 15 Diagnosis - Discharge Diagnosis (1) Right forearm cellulitis Status: Acute (2) HIV (human immunodeficiency virus infection) Status: Acute (3) DVT prophylaxis Status: Acute Hospital Course - Lab Results Lab Results: Micro Results 06/21/17 12:57 Blood-Venous Blood Culture - Preliminary NO GROWTH AFTER 24 HOURS 06/21/17 12:57 Blood-Venous Blood Culture - Preliminary NO GROWTH AFTER 24 HOURS Most Recent Lab Values WBC 10.7 K/uL (4.8-10.8) 06/22/17 06:20 RBC 4.44 Mil/uL (4.40-5.90) 06/22/17 06:20 Hgb 13.6 g/dL (12.0-18.0) 06/22/17 06:20 Hct 40.6 % (35.0-51.0) 06/22/17 06:20 MCV 91.5 fl (80.0-94.0) D 06/22/17 06:20 MCH 30.6 pg (27.0-31.0) 06/22/17 06:20 MCHC 33.5 g/dL (33.0-37.0) 06/22/17 06:20 RDW 14.3 % (11.5-14.5) 06/22/17 06:20 Plt Count 209 K/uL (130-400) 06/22/17 06:20 MPV 9.3 fl (7.2-11.7) 06/22/17 06:20 Neut % (Auto) 60.1 % (50.0-75.0) 06/22/17 06:20 Lymph % (Auto) 25.0 % (20.0-40.0) 06/22/17 06:20 [place] % (Auto) 13.6 % (0.0-10.0) H 06/22/17 06:20 Eos % (Auto) 0.6 % (0.0-4.0) 06/22/17 06:20 Baso % (Auto) 0.7 % (0.0-2.0) 06/22/17 06:20 Neut # (Auto) 6.4 K/uL (1.8-7.0) 06/22/17 06:20 Lymph # (Auto) 2.7 K/uL (1.0-4.3) 06/22/17 06:20 [place] # (Auto) 1.5 K/uL (0.0-0.8) H 06/22/17 06:20 Eos # (Auto) 0.1 K/uL (0.0-0.7) 06/22/17 06:20 Baso # (Auto) 0.1 K/uL (0.0-0.2) 06/22/17 06:20 pO2 42 mm/Hg (30-55) 06/21/17 12:18 VBG pH 7.43 (7.32-7.43) 06/21/17 12:18 VBG pCO2 41 mmHg (40-60) 06/21/17 12:18 VBG HCO3 26.4 mmol/L 06/21/17 12:18 VBG Total CO2 28.5 mmol/L (22-28) H 06/21/17 12:18 VBG O2 Sat (Calc) 83.5 % (40-65) H 06/21/17 12:18 VBG Base Excess 2.6 mmol/L (0.0-2.0) H 06/21/17 12:18 VBG Potassium 3.6 mmol/L (3.6-5.2) 06/21/17 12:18 A-a O2 Difference 56.0 mm/Hg 06/21/17 12:18 Sodium 133.0 mmol/L (132-148) 06/21/17 12:18 Chloride 101.0 mmol/L (98-107) 06/21/17 12:18 Glucose 108 mg/dL (75-110) 06/21/17 12:18 Lactate 1.7 mmol/L (0.7-2.1) 06/21/17 12:18 FiO2 21.0 % 06/21/17 12:18 Blood Gas Comments Vbg 06/21/17 12:18 Crit Value Called To Rahul larson 06/21/17 12:18 Crit Value Called By 15 06/21/17 12:18 Crit Value Read Back Y 06/21/17 12:18 Blood Gas Notified Time 1257 06/21/17 12:18 Sodium 141 mmol/l (132-148) 06/22/17 06:20 Potassium 3.8 MMOL/L (3.6-5.0) 06/22/17 06:20 Chloride 99 mmol/L (98-107) 06/22/17 06:20 Carbon Dioxide 27 mmol/L (22-30) 06/22/17 06:20 Anion Gap 19 (10-20) 06/22/17 06:20 BUN 17 mg/dl (9-20) 06/22/17 06:20 Creatinine 1.0 mg/dl (0.8-1.5) 06/22/17 06:20 Est GFR ( Amer) > 60 06/22/17 06:20 Est GFR (Non-Af Amer) > 60 06/22/17 06:20 Random Glucose 96 mg/dL (75-110) 06/22/17 06:20 Calcium 8.9 mg/dL (8.4-10.2) 06/22/17 06:20 Total Bilirubin 1.7 mg/dl (0.2-1.3) H 06/22/17 06:20 AST 36 U/L (17-59) 06/22/17 06:20 ALT 41 U/L (21-72) 06/22/17 06:20 Alkaline Phosphatase 58 U/L (38-126) 06/22/17 06:20 Total Protein 7.3 G/DL (6.3-8.2) 06/22/17 06:20 Albumin 3.8 g/dL (3.5-5.0) 06/22/17 06:20 Globulin 3.5 gm/dL (2.2-3.9) 06/22/17 06:20 Albumin/Globulin Ratio 1.1 (1.0-2.1) 06/22/17 06:20 Venous Blood Potassium 3.6 mmol/L (3.6-5.2) 06/21/17 12:18 - Hospital Course Hospital Course: vanco/zosyn Discharge Exam - Head Exam Head Exam: ATRAUMATIC, NORMAL INSPECTION, NORMOCEPHALIC Discharge Plan - Discharge Medications Prescriptions: Sulfamethoxazole/Trimethoprim [Bactrim Ds Tablet] 1 each PO BID #14 tablet - Follow Up Plan Condition: STABLE Disposition: HOME/ ROUTINE Instructions: Cellulitis (Skin Infection), Adult (DC) Additional Instructions: Meds called into patient's Pharmacy Keep R arm elevated; apply warm compress 3-4X a day for 20-30 min final dx- rfa cellulitis bactrim erx, f/u pmd janny, rted prn, meds per med rec, cont hiv meds. keep rue elevated, warm compresses
--- NOTE | 2017-06-24 07:26 | PQF HIV ---
Patient was admitted with a diagnosis of HIV. Please clarify below if patient has a diagnosis of asymptomatic Hiv or Aids. This form is a permanent part of the medical record Clarification of your documentation is requested to better reflect the severity of illness and intensity of treatment of your patient. Indicators present [X] Documented diagnosis of HIV [] CD4 count: pending [] Other: [] Location in the medical record that reflects the above clinical findings: [] Other Treatment Provided: [] PHYSICIAN'S RESPONSE If possible, based on your medical judgment, please clarify the clinical classification for this patient. [] Asymptomatic HIV Status: without any history of (or current) AIDS Defining Illnesses of HIV-Related Illness [x] AIDS: Meets the current CDC Definition of AIDS HIV-Infected persons who HAVE OR HAVE HAD less than 200 CD4+ T-lymphocytes/uL or CD4+ T-lymphocyte percentage of total lymphocytes of less than 14, AND/OR an AIDS-Defining or HIV-Related Disease. See reverse side for examples. Per CDC publication Vol 60 RR-17 : Relating to the classification HIV Infection , once a patient is diagnosed with AIDS the diagnosis still stands even if, after treatment, the CD4+ T cell count rises above 200 per uL of blood or other AIDS-defining illnesses are cured. [] If unable to determine, please check the box, sign and date. In responding to this query, please exercise your independent professional judgment. The fact that a question is asked does not imply that any particular answer is desired or expected. Thank you for your clarification on this documentation. If you have any questions please call:[ ] * Thank you, [ ]Danette Rodriguez payroll master The following are AIDS-Defining Illnesses or HIV-Related Diseases: Candidiasis of bronchi, trachea, or lungs Candidiasis, esophageal Cervical cancer, invasive * Coccidioidomycosis, disseminated or extrapulmonary Cryptococcosis, extrapulmonary Cryptosporidiosis, chronic intestinal (greater than 1 month's duration) Cytomegalovirus disease (other than liver, spleen, or nodes) Cytomegalovirus retinitis (with loss of vision) Encephalopathy, HIV-related Herpes simplex: chronic ulcer(s) (greater than 1 month's duration); or bronchitis, pneumonitis, or esophagitis Histoplasmosis, disseminated or extrapulmonary Isosporiasis, chronic intestinal (greater than 1 month's duration) Kaposi's sarcoma Lymphoma, Burkitt's (or equivalent term) Lymphoma, immunoblastic (or equivalent term) Lymphoma, primary, of brain Mycobacterium avium complex or M. [place]ii, disseminated or extrapulmonary Mycobacterium tuberculosis, any site (pulmonary * or extrapulmonary) Mycobacterium, other species or unidentified species, disseminated or extrapulmonary Pneumocystis carinii pneumonia Pneumonia, recurrent * Progressive multifocal leukoencephalopathy Salmonella septicemia, recurrent Toxoplasmosis of brain Wasting syndrome due to HIV MTDD
== END 2017-06-22 17:35 | disposition home or self-care (01) ==
LOC: H.ER 10:29 → H.ERHOLD 13:55 → INTOOBSV 13:55 → H.MEDSURG1 15:15
PROVIDERS: ADMIT Family Medicine; ATTEND Family Medicine
DX: L03.113 Cellulitis of right upper limb (principal); N52.9 Male erectile dysfunction, unspecified; H91.90 Unspecified hearing loss, unspecified ear; B20 Human immunodeficiency virus [HIV] disease; Z23 Encounter for immunization
CPT/HCPCS: 36415; 73090; 73130; 80053; 82803; 85025; 87040; 90471; 90715; 93005; 99284; G0378; J2543